=== PATIENT | male | born 1980 | race Caucasian/White ===

== ENCOUNTER 2017-10-26 09:44 | Inpatient (IN) | payer MEDICAID ==
[~2017-10-26] VITALS: Ht 165.1 cm; Wt 71.9 kg
[2017-10-26 10:14] VITALS: Ht 165.1 cm; Wt 71.9 kg
[2017-10-26 11:03] LABS: PLATELET COUNT 185 x10^3mcL (130-400); RED CELL DISTRIBUTION WIDTH 12.5 % (11.5-14.5)
[2017-10-26 11:10] LABS: microscopic required? NO
[2017-10-26 11:19] LABS: CALCIUM 8.7 mg/dL (8.5-10.1); CARBON DIOXIDE 29.1 mmol/L (21-32); CHLORIDE SERUM 100 mmol/L (98-107); CREATININE SERUM 0.7 mg/dL (0.7-1.3); GFR1 > 60 mL/min; GLUCOSE SERUM 90 mg/dL (74-106); POTASSIUM SERUM 3.8 mmol/L (3.5-5.1); SODIUM SERUM 138 mmol/L (136-145)
[2017-10-26 11:21] LABS: UA SPECIFIC GRAVITY 1.025 (1.005-1.035); urine erythrocyte NEGATIVE (NEGATIVE)
[2017-10-26 11:25] LABS: ALBUMIN 3.8 g/dL (3.4-5.0); ALKALINE PHOSPHATASE 232 U/L (46-116); ALT/SGPT 902 U/L (16-63); AST/SGOT 246 U/L (15-37); BILIRUBIN TOTAL 3.46 mg/dL (0.20-1.00); TOTAL PROTEIN, SERUM 7.8 g/dL (6.4-8.2)
[2017-10-26 11:42] LABS: LIPASE 6077 IU/L (73-393)
[2017-10-26 12:40] VITALS: BP 140/75
[2017-10-26 13:21] VITALS: BP 121/83
[2017-10-26 14:48] LABS: T3 TOTAL 1.27 ng/mL
[2017-10-26 15:04] LABS: CHOLESTEROL/HDL RATIO 3.1; MAGNESIUM 2.3 mg/dL (1.8-2.4)
[2017-10-26 15:11] LABS: FREE T4 1.22 ng/dL (0.76-1.46); FREE THYROXINE INDEX 3.4 ug/dL (1.4-4.5); T4(THYROXINE) 9.7 ug/dL (4.7-13.3)
[2017-10-26 16:27] LABS: AMPHETAMINE QUAL UR POSITIVE (NEG <=1000)
[2017-10-26 16:53] VITALS: BP 106/76; BP 132/75
[2017-10-26 20:29] VITALS: BP 108/74
[2017-10-27 05:50] VITALS: BP 110/70
[2017-10-27 06:13] LABS: BASOPHIL % 0.7 % (0-2); PLATELET COUNT 160 x10^3mcL (130-400); RED CELL DISTRIBUTION WIDTH 12.9 % (11.5-14.5)
[2017-10-27 06:24] LABS: CALCIUM 8.4 mg/dL (8.5-10.1); CARBON DIOXIDE 30.2 mmol/L (21-32); CHLORIDE SERUM 103 mmol/L (98-107); CREATININE SERUM 0.7 mg/dL (0.7-1.3); GFR1 > 60 mL/min; GLUCOSE SERUM 86 mg/dL (74-106); POTASSIUM SERUM 4.4 mmol/L (3.5-5.1); SODIUM SERUM 140 mmol/L (136-145)
[2017-10-27 13:08] VITALS: BP 109/73
[2017-10-27 16:42] VITALS: BP 109/64
[2017-10-27 21:56] VITALS: BP 102/65
[2017-10-28 06:00] VITALS: BP 100/71
[2017-10-28 07:43] LABS: CALCIUM 8.3 mg/dL (8.5-10.1); CARBON DIOXIDE 28.1 mmol/L (21-32); CHLORIDE SERUM 103 mmol/L (98-107); CREATININE SERUM 0.7 mg/dL (0.7-1.3); GFR1 > 60 mL/min; GLUCOSE SERUM 108 mg/dL (74-106); POTASSIUM SERUM 3.8 mmol/L (3.5-5.1); SODIUM SERUM 140 mmol/L (136-145)
[2017-10-28 08:13] LABS: BASOPHIL % 0.4 % (0-2); PLATELET COUNT 181 x10^3mcL (130-400); RED CELL DISTRIBUTION WIDTH 12.8 % (11.5-14.5)
[2017-10-28 09:03] VITALS: BP 118/75
[2017-10-28 13:22] VITALS: BP 115/74
[2017-10-28 16:32] VITALS: BP 118/72
[2017-10-28 21:00] VITALS: BP 100/50
[2017-10-29 05:37] VITALS: BP 111/67
[2017-10-29 06:51] LABS: BASOPHIL % 0.7 % (0-2); PLATELET COUNT 183 x10^3mcL (130-400); RED CELL DISTRIBUTION WIDTH 12.9 % (11.5-14.5)
[2017-10-29 07:26] LABS: ALKALINE PHOSPHATASE 217 U/L (46-116); ALT/SGPT 466 U/L (16-63); AST/SGOT 117 U/L (15-37); BILIRUBIN TOTAL 0.9 mg/dL (0.20-1.00); CALCIUM 8.4 mg/dL (8.5-10.1); CARBON DIOXIDE 28.5 mmol/L (21-32); CHLORIDE SERUM 102 mmol/L (98-107); CREATININE SERUM 0.7 mg/dL (0.7-1.3); GFR1 > 60 mL/min; GLUCOSE SERUM 109 mg/dL (74-106); LIPASE 481 IU/L (73-393); POTASSIUM SERUM 3.9 mmol/L (3.5-5.1); SODIUM SERUM 139 mmol/L (136-145); TOTAL PROTEIN, SERUM 6.7 g/dL (6.4-8.2)
[2017-10-29 07:30] LABS: ALBUMIN 2.9 g/dL (3.4-5.0); AMYLASE 149 U/L (25-115)
[2017-10-29 13:48] VITALS: BP 115/78
[2017-10-29 17:20] VITALS: BP 128/89
[2017-10-29 19:30] VITALS: BP 126/76
[2017-10-29 21:41] VITALS: BP 124/76
[2017-10-30 05:39] VITALS: BP 119/70
[2017-10-30 06:54] LABS: ALBUMIN 2.9 g/dL (3.4-5.0); ALKALINE PHOSPHATASE 190 U/L (46-116); ALT/SGPT 453 U/L (16-63); AST/SGOT 152 U/L (15-37); BILIRUBIN TOTAL 1.01 mg/dL (0.20-1.00); CALCIUM 8.8 mg/dL (8.5-10.1); CARBON DIOXIDE 29.6 mmol/L (21-32); CHLORIDE SERUM 100 mmol/L (98-107); CREATININE SERUM 0.7 mg/dL (0.7-1.3); GFR1 > 60 mL/min; GLUCOSE SERUM 121 mg/dL (74-106); LIPASE 355 IU/L (73-393); MAGNESIUM 1.9 mg/dL (1.8-2.4); PHOSPHOROUS 4.1 mg/dL (2.5-4.9); POTASSIUM SERUM 3.6 mmol/L (3.5-5.1); SODIUM SERUM 139 mmol/L (136-145); TOTAL PROTEIN, SERUM 6.9 g/dL (6.4-8.2)
[2017-10-30 06:56] LABS: BASOPHIL % 0.5 % (0-2); PLATELET COUNT 195 x10^3mcL (130-400); RED CELL DISTRIBUTION WIDTH 12.5 % (11.5-14.5)
[2017-10-30] MEDS ORDERED: COLACE100 MG PO ×2 (09:18→09:52)
[2017-10-30] MEDS ORDERED: ONDANSETRON4 M3 PO ×2 (09:18→09:52)
[2017-10-30] MEDS ORDERED: NORCO1 TA2 PO ×2 (09:20→09:53)
[2017-10-30] MEDS ORDERED: NORCO1 TA1 PO ×2 (09:21→09:22)
[2017-10-30] MEDS ORDERED: FERROUS SULFAT325 M2 PO ×2 (09:21→09:52)
[2017-10-30] MEDS ORDERED: VITAMIN C PURE500 MG PO ×2 (09:22→09:52)
[2017-10-30 09:54] VITALS: BP 125/83
[2017-10-30 14:57] VITALS: BP 125/83
== END 2017-10-30 15:30 | disposition home or self-care (01) | DRG 263 ==
LOC: ED 09:44 → DU 11:58 → MU 11:58 → DU 13:11 → MU 10-28 10:17
PROVIDERS: Emergency Medicine; Family Medicine; Internal Medicine; Surgery
PROC: 0F798ZZ Dilation of Common Bile Duct, Via Natural or Artificial Opening Endoscopic (ICD-10-PCS; principal; 2017-10-27 08:00)
PROC: 0FT44ZZ Resection of Gallbladder, Percutaneous Endoscopic Approach (ICD-10-PCS; 2017-10-29)
DX: K80.21 Calculus of gallbladder without cholecystitis with obstruction (principal); K85.10 Biliary acute pancreatitis without necrosis or infection; K75.89 Other specified inflammatory liver diseases; F17.210 Nicotine dependence, cigarettes, uncomplicated; F12.10 Cannabis abuse, uncomplicated; Z87.442 Personal history of urinary calculi; Z68.25 Body mass index [BMI] 25.0-25.9, adult
CPT/HCPCS: 43262; 82962; 83880; 84439; 94150; C1769; J0330; J1170; J1610; J1885; J2250; J2405; J2543; J2704; J2710; J3010; J3490; J7030; J7120; Q0092; Q9967